=== PATIENT | female | born 1945 | race Caucasian/White ===

== ENCOUNTER 2020-03-22 16:54 | Emergency (ER) | payer MEDICARE, OTHER ==
[2020-03-22 17:02] VITALS: BP 137/74; PULSE 69; TEMP 97.4; BMI 22.4
[2020-03-22 19:04] LABS: BASO % 0.7 % (0-2.0); EOS % 1.1 % (0-4.5); HEMOGLOBIN 11.9 GM/dL (10.7-15.3); LYMPH % 14.1 % (8-40); MCH 31.9 pg (25.7-33.7); MCHC 33.9 g/dl (32.0-36.0); MEAN CELL VOLUME 93.9 fl (80-96); MEAN PLT VOLUME 8.6 fl (7.5-11.1); MONO % 6.6 % (3.8-10.2); NEUT % 77.5 % (42.8-82.8); PLATELET COUNT 214 K/MM3 (134-434); RBC 3.73 M/mm3 (3.60-5.2); RDW 12.9 % (11.6-15.6); WHITE BLOOD COUNT 7.7 K/mm3 (4.0-10.0)
[2020-03-22 19:05] LABS: URINE APPEARANCE CLEAR; URINE BILIRUBIN NEGATIVE (NEGATIVE); URINE COLOR YELLOW; URINE GLUCOSE (UA) NEGATIVE (NEGATIVE); URINE KETONE NEGATIVE (NEGATIVE); URINE LEUK ESTERASE NEGATIVE (NEGATIVE); URINE NITRITE NEGATIVE (NEGATIVE); URINE PROTEIN NEGATIVE (NEGATIVE); URINE UROBILINOGEN 0.2 mg/dL (0.2-1.0)
[2020-03-22 20:20] LABS: POTASSIUM 4.6 mmol/L (3.5-5.1)
[2020-03-22 20:24] LABS: ALBUMIN 3.5 g/dl (3.4-5.0); CALCIUM 9.7 mg/dL (8.5-10.1)
[2020-03-22 20:28] LABS: CREATININE 0.7 mg/dL (0.55-1.3)
[2020-03-22 20:29] LABS: BILIRUBIN,TOTAL 0.5 mg/dL (0.2-1); TOT PROT 6.8 g/dl (6.4-8.2)
[2020-03-22 20:43] LABS: BLOOD UREA NITROGEN 9.5 mg/dL (7-18)
== END 2020-03-22 23:14 | disposition home or self-care (01) ==
LOC: JER 16:54
DX: R33.9 Retention of urine, unspecified (principal)
CPT/HCPCS: 36415; 71045-TC-FY; 74177-TC; 80053; 81003; 85025; 87086; 99284-25; Q9967

== ENCOUNTER 2021-08-13 15:07 | Inpatient (IN) | payer MEDICARE, OTHER ==
[2021-08-13 15:36] VITALS: BMI 25.4
[2021-08-13] MEDS ORDERED: SODIUM CHLORIDE 0.9% 500 ML INFUS.BAG IV ONE (16:39)
[2021-08-13] MEDS ORDERED: ACETAMINOPHEN 1000 MG/100 ML BAG IVPB ONE (16:39)
[2021-08-13] MEDS ORDERED: FAMOTIDINE 20 MG/50 ML IVPB 20 MG/50 ML MG IVPB ONE ×2 (16:40→17:36)
[2021-08-13 17:30] LABS: BASO % 0.7 % (0-2.0); EOS % 0.6 % (0-4.5); HEMATOCRIT 34.7 % (32.4-45.2); HEMOGLOBIN 11.8 GM/dL (10.7-15.3); LYMPH % 15.5 % (8-40); MCH 31.1 pg (25.7-33.7); MCHC 34.1 g/dl (32.0-36.0); MEAN CELL VOLUME 91.3 fl (80-96); MEAN PLT VOLUME 7.7 fl (7.5-11.1); MONO % 5.9 % (3.8-10.2); NEUT % 77.3 % (42.8-82.8); PLATELET COUNT 247 10^3/uL (134-434); RDW 12.8 % (11.6-15.6); WHITE BLOOD COUNT 10.5 K/mm3 (4.0-10.0)
[2021-08-13] MEDS ORDERED: ACETAMINOPHEN INJECTION 100 ML IVPB ONE (17:36)
[2021-08-13 17:53] LABS: ALBUMIN 3.4 g/dl (3.4-5.0); BLOOD UREA NITROGEN 15.1 mg/dL (7-18); CALCIUM 9.2 mg/dL (8.5-10.1)
[2021-08-13 17:56] LABS: CREATININE 0.8 mg/dL (0.55-1.3)
[2021-08-13 17:58] LABS: INR 1.1 (0.83-1.09); PROTHROMBIN TIME (PATIENT) 12.7 SEC (9.7-13.0)
[2021-08-13 17:58] LABS: BILIRUBIN,TOTAL 0.3 mg/dL (0.2-1); TOT PROT 6.9 g/dl (6.4-8.2)
[2021-08-13 18:00] LABS: ACTIVATED PTT 22.5 SECONDS (25.2-36.5)
[2021-08-13 19:42] LABS: URINE APPEARANCE CLEAR; URINE BILIRUBIN NEGATIVE (NEGATIVE); URINE COLOR YELLOW; URINE GLUCOSE (UA) NEGATIVE (NEGATIVE); URINE KETONE NEGATIVE (NEGATIVE); URINE LEUK ESTERASE NEGATIVE (NEGATIVE); URINE NITRITE NEGATIVE (NEGATIVE); URINE PROTEIN NEGATIVE (NEGATIVE); URINE UROBILINOGEN 0.2 mg/dL (0.2-1.0)
[2021-08-13] MEDS ORDERED: ACETAMINOPHEN 325 MG TABLET (FP) PO PRN (22:19)
[2021-08-14 07:56] LABS: HEMATOCRIT 31.9 % (32.4-45.2); HEMOGLOBIN 11.1 GM/dL (10.7-15.3); MCH 31.4 pg (25.7-33.7); MCHC 34.7 g/dl (32.0-36.0); MEAN CELL VOLUME 90.7 fl (80-96); MEAN PLT VOLUME 7.5 fl (7.5-11.1); PLATELET COUNT 214 10^3/uL (134-434); RBC 3.52 M/mm3 (3.60-5.2); RDW 12.8 % (11.6-15.6); WHITE BLOOD COUNT 9.9 K/mm3 (4.0-10.0)
[2021-08-14 08:17] LABS: BLOOD UREA NITROGEN 11.2 mg/dL (7-18)
[2021-08-14 08:18] LABS: CALCIUM 8.6 mg/dL (8.5-10.1)
[2021-08-14 08:22] LABS: CREATININE 0.6 mg/dL (0.55-1.3); PHOSPHOROUS 3.4 mg/dL (2.5-4.9)
[2021-08-14] MEDS ORDERED: EZETIMIBE 10 MG TABLET (FP) PO SCH (10:00)
[2021-08-14] MEDS ORDERED: ASPIRIN 81 MG CHEWABLE TABLETS PO SCH (10:00)
[2021-08-14] MEDS ORDERED: SPIRONOLACTONE 25 MG TABLET PO SCH (10:00)
[2021-08-14] MEDS ORDERED: ENOXAPARIN NA (PORCINE) 40 MG/0.4 ML DISP.SYRIN SQ SCH (10:00)
[2021-08-14] MEDS ORDERED: SPIRONOLACTONE 25 MG TABLET ONE (10:07)
[2021-08-14] MEDS ORDERED: ASPIRIN 81 MG CHEWABLE TABLETS ONE (10:07)
[2021-08-14] MEDS ORDERED: ENOXAPARIN NA (PORCINE) 40 MG/0.4 ML DISP.SYRIN SQ ONE (10:08)
[2021-08-14] MEDS: SACUBITRIL/VALSARTAN 49 MG-51 MG TABLET PO SCH ×2 (10:24→22:21)
[2021-08-14] MEDS ORDERED: ACETAMINOPHEN 325 MG TABLET (FP) ONE (10:26)
[2021-08-14] MEDS ORDERED: ROSUVASTATIN CA 20 MG TABLET PO SCH (22:00)
[2021-08-15 07:52] LABS: BASO % 0.5 % (0-2.0); EOS % 1.6 % (0-4.5); HEMATOCRIT 31.5 % (32.4-45.2); HEMOGLOBIN 10.6 GM/dL (10.7-15.3); LYMPH % 22.3 % (8-40); MCHC 33.8 g/dl (32.0-36.0); MEAN CELL VOLUME 91.7 fl (80-96); MEAN PLT VOLUME 7.7 fl (7.5-11.1); MONO % 5.7 % (3.8-10.2); NEUT % 69.9 % (42.8-82.8); PLATELET COUNT 214 10^3/uL (134-434); RBC 3.43 M/mm3 (3.60-5.2); WHITE BLOOD COUNT 8.5 K/mm3 (4.0-10.0)
[2021-08-15 08:20] LABS: ALBUMIN 2.9 g/dl (3.4-5.0); CALCIUM 8.4 mg/dL (8.5-10.1)
[2021-08-15 08:21] LABS: BLOOD UREA NITROGEN 15.6 mg/dL (7-18); MAGNESIUM 2.2 mg/dL (1.8-2.4)
[2021-08-15 08:23] LABS: CREATININE 0.7 mg/dL (0.55-1.3)
[2021-08-15 08:24] LABS: BILIRUBIN,TOTAL 0.4 mg/dL (0.2-1)
[2021-08-15] MEDS ORDERED: ACETAMINOPHEN 325 MG TABLET (FP) PO PRN (09:42)
[2021-08-15] MEDS ORDERED: SENNOSIDES 8.6MG TABLET (FP) PO ONE (10:45)
[2021-08-15] MEDS: SACUBITRIL/VALSARTAN 49 MG-51 MG TABLET PO SCH ×2 (11:08→22:37)
[2021-08-15] MEDS: SPIRONOLACTONE 25 MG TABLET PO SCH (11:08)
[2021-08-15] MEDS: ASPIRIN 81 MG CHEWABLE TABLETS PO SCH (11:14)
[2021-08-15] MEDS: EZETIMIBE 10 MG TABLET (FP) PO SCH (11:15)
[2021-08-15] MEDS: ENOXAPARIN NA (PORCINE) 40 MG/0.4 ML DISP.SYRIN SQ SCH (11:15)
[2021-08-15] MEDS: POLYETHYLENE GLYCOL (HEALTHYLAX) 3350 17 GM PACKET PO SCH (11:15)
[2021-08-15] MEDS ORDERED: BISACODYL 5 MG TABLET.DR (FP) PO ONE (16:00)
[2021-08-15] MEDS ORDERED: PEG 3350/NA SULF BICARB CL/KCL 4000 ML SOLN.RECON PO ONE (17:00)
[2021-08-15] MEDS ORDERED: TRIMETHOBENZAMIDE HCL 200MG/2ML INJ IM ONE (17:52)
[2021-08-15] MEDS: ROSUVASTATIN CA 20 MG TABLET PO SCH (22:05)
[2021-08-16 08:07] LABS: CARCINOEMBRYONIC ANTIGEN 1.4 ng/mL (0.0-4.7)
[2021-08-16 08:17] LABS: BASO % 0.7 % (0-2.0); HEMATOCRIT 29.5 % (32.4-45.2); HEMOGLOBIN 10.1 GM/dL (10.7-15.3); LYMPH % 27.4 % (8-40); MCH 30.9 pg (25.7-33.7); MCHC 34.1 g/dl (32.0-36.0); MEAN CELL VOLUME 90.5 fl (80-96); MEAN PLT VOLUME 7.6 fl (7.5-11.1); MONO % 6.9 % (3.8-10.2); PLATELET COUNT 217 10^3/uL (134-434); RBC 3.26 M/mm3 (3.60-5.2); RDW 12.5 % (11.6-15.6); WHITE BLOOD COUNT 7.2 K/mm3 (4.0-10.0)
[2021-08-16 08:37] LABS: INR 1.15 (0.83-1.09); PROTHROMBIN TIME (PATIENT) 13.3 SEC (9.7-13.0)
[2021-08-16 08:43] LABS: CALCIUM 8.5 mg/dL (8.5-10.1)
[2021-08-16 08:43] LABS: CALCIUM 8.6 mg/dL (8.5-10.1)
[2021-08-16 08:44] LABS: BLOOD UREA NITROGEN 10.2 mg/dL (7-18)
[2021-08-16 08:44] LABS: ALBUMIN 2.8 g/dl (3.4-5.0); BLOOD UREA NITROGEN 9.6 mg/dL (7-18)
[2021-08-16 08:47] LABS: CREATININE 0.7 mg/dL (0.55-1.3)
[2021-08-16 08:48] LABS: CREATININE 0.7 mg/dL (0.55-1.3)
[2021-08-16 08:48] LABS: BILIRUBIN,TOTAL 0.5 mg/dL (0.2-1)
[2021-08-16] MEDS: EZETIMIBE 10 MG TABLET (FP) PO SCH (13:47)
[2021-08-16] MEDS: SPIRONOLACTONE 25 MG TABLET PO SCH (13:48)
[2021-08-16] MEDS: ASPIRIN 81 MG CHEWABLE TABLETS PO SCH (13:48)
[2021-08-16] MEDS: SACUBITRIL/VALSARTAN 49 MG-51 MG TABLET PO SCH ×2 (13:53→22:59)
[2021-08-16] MEDS: POLYETHYLENE GLYCOL (HEALTHYLAX) 3350 17 GM PACKET PO SCH (13:54)
[2021-08-16] MEDS: ROSUVASTATIN CA 20 MG TABLET PO SCH (22:59)
[2021-08-17 10:03] LABS: BASO % 1.1 % (0-2.0); EOS % 2.5 % (0-4.5); HEMATOCRIT 31.8 % (32.4-45.2); HEMOGLOBIN 10.9 GM/dL (10.7-15.3); LYMPH % 29.3 % (8-40); MCH 30.9 pg (25.7-33.7); MCHC 34.2 g/dl (32.0-36.0); MEAN CELL VOLUME 90.3 fl (80-96); MEAN PLT VOLUME 7.6 fl (7.5-11.1); MONO % 6.4 % (3.8-10.2); NEUT % 60.7 % (42.8-82.8); PLATELET COUNT 233 10^3/uL (134-434); RBC 3.52 M/mm3 (3.60-5.2); RDW 12.8 % (11.6-15.6); WHITE BLOOD COUNT 6.3 K/mm3 (4.0-10.0)
[2021-08-17] MEDS: SPIRONOLACTONE 25 MG TABLET PO SCH (11:03)
[2021-08-17] MEDS: EZETIMIBE 10 MG TABLET (FP) PO SCH (11:03)
[2021-08-17] MEDS: ASPIRIN 81 MG CHEWABLE TABLETS PO SCH (11:03)
[2021-08-17] MEDS: SACUBITRIL/VALSARTAN 49 MG-51 MG TABLET PO SCH ×2 (11:04→21:17)
[2021-08-17] MEDS: POLYETHYLENE GLYCOL (HEALTHYLAX) 3350 17 GM PACKET PO SCH (11:04)
[2021-08-17] MEDS: ENOXAPARIN NA (PORCINE) 40 MG/0.4 ML DISP.SYRIN SQ SCH (11:04)
[2021-08-17 11:24] LABS: CALCIUM 9.2 mg/dL (8.5-10.1)
[2021-08-17 11:25] LABS: BLOOD UREA NITROGEN 5.8 mg/dL (7-18)
[2021-08-17 11:28] LABS: CREATININE 0.8 mg/dL (0.55-1.3)
[2021-08-17 11:30] LABS: BILIRUBIN,TOTAL 0.2 mg/dL (0.2-1); TOT PROT 6.2 g/dl (6.4-8.2)
[2021-08-17] MEDS ORDERED: cefTRIAXone SODIUM 1 GM VIAL ONE (19:08)
[2021-08-17] MEDS ORDERED: DEXTROSE 5%-WATER - 50 ML IVPB ONE (19:08)
[2021-08-17] MEDS: CEFTRIAXONE 1 GM in DEXTROSE 5%-WATER - 50 ML IVPB SCH (19:20)
[2021-08-17] MEDS: ROSUVASTATIN CA 20 MG TABLET PO SCH (21:17)
[2021-08-18] MEDS ORDERED: cefTRIAXone SODIUM 1 GM VIAL ONE (09:10)
[2021-08-18] MEDS ORDERED: DEXTROSE 5%-WATER - 50 ML IVPB ONE (09:11)
[2021-08-18] MEDS: ENOXAPARIN NA (PORCINE) 40 MG/0.4 ML DISP.SYRIN SQ SCH (09:19)
[2021-08-18] MEDS: CEFTRIAXONE 1 GM in DEXTROSE 5%-WATER - 50 ML IVPB SCH (09:20)
[2021-08-18] MEDS: ASPIRIN 81 MG CHEWABLE TABLETS PO SCH (09:20)
[2021-08-18] MEDS: EZETIMIBE 10 MG TABLET (FP) PO SCH (09:20)
[2021-08-18] MEDS: POLYETHYLENE GLYCOL (HEALTHYLAX) 3350 17 GM PACKET PO SCH (09:21)
[2021-08-18] MEDS: SPIRONOLACTONE 25 MG TABLET PO SCH (11:27)
[2021-08-18] MEDS: SACUBITRIL/VALSARTAN 49 MG-51 MG TABLET PO SCH ×2 (11:27→21:57)
[2021-08-18 13:20] LABS: BASO % 1.1 % (0-2.0); EOS % 2.5 % (0-4.5); HEMATOCRIT 30.6 % (32.4-45.2); HEMOGLOBIN 10.5 GM/dL (10.7-15.3); LYMPH % 35.5 % (8-40); MCH 31.2 pg (25.7-33.7); MCHC 34.4 g/dl (32.0-36.0); MEAN CELL VOLUME 90.8 fl (80-96); MEAN PLT VOLUME 8.2 fl (7.5-11.1); MONO % 7.4 % (3.8-10.2); NEUT % 53.5 % (42.8-82.8); PLATELET COUNT 239 10^3/uL (134-434); RBC 3.37 M/mm3 (3.60-5.2); RDW 12.7 % (11.6-15.6); WHITE BLOOD COUNT 4.9 K/mm3 (4.0-10.0)
[2021-08-18] MEDS: ROSUVASTATIN CA 20 MG TABLET PO SCH (21:57)
[2021-08-19] MEDS ORDERED: PANTOPRAZOLE 20 MG TABLET PO SCH (10:00)
[2021-08-19] MEDS ORDERED: DEXTROSE 5%-WATER - 50 ML IVPB ONE (10:25)
[2021-08-19] MEDS ORDERED: cefTRIAXone SODIUM 1 GM VIAL ONE (10:25)
[2021-08-19] MEDS: EZETIMIBE 10 MG TABLET (FP) PO SCH (10:28)
[2021-08-19] MEDS: SPIRONOLACTONE 25 MG TABLET PO SCH (10:28)
[2021-08-19] MEDS: ASPIRIN 81 MG CHEWABLE TABLETS PO SCH (10:29)
[2021-08-19] MEDS: SACUBITRIL/VALSARTAN 49 MG-51 MG TABLET PO SCH (10:29)
[2021-08-19] MEDS: CEFTRIAXONE 1 GM in DEXTROSE 5%-WATER - 50 ML IVPB SCH (10:30)
[2021-08-19] MEDS: ENOXAPARIN NA (PORCINE) 40 MG/0.4 ML DISP.SYRIN SQ SCH (10:31)
[2021-08-19] MEDS: POLYETHYLENE GLYCOL (HEALTHYLAX) 3350 17 GM PACKET PO SCH (10:32)
[2021-08-19 16:29] VITALS: BP 87/55; PULSE 67; TEMP 98.7
== END 2021-08-19 17:24 | disposition home or self-care (01) | DRG 394 ==
LOC: JER 15:07 → JERBED 21:46 → J8W 08-15 09:26 → OBSVTOIN 08-15 13:19 → J8W 08-15 13:53
PROVIDERS: ADMIT Internal Medicine; ATTEND Internal Medicine
PROC: 0DBP8ZX Excision of Rectum, Via Natural or Artificial Opening Endoscopic, Diagnostic (ICD-10-PCS; 2021-08-16)
PROC: 0DBE8ZX Excision of Large Intestine, Via Natural or Artificial Opening Endoscopic, Diagnostic (ICD-10-PCS; principal; 2021-08-16 11:30)
DX: K55.9 Vascular disorder of intestine, unspecified (principal); I50.22 Chronic systolic (congestive) heart failure; I24.8 Other forms of acute ischemic heart disease; I11.0 Hypertensive heart disease with heart failure; I25.5 Ischemic cardiomyopathy; I25.10 Atherosclerotic heart disease of native coronary artery without angina pectoris; E78.00 Pure hypercholesterolemia, unspecified; E78.5 Hyperlipidemia, unspecified; K21.9 Gastro-esophageal reflux disease without esophagitis; G89.29 Other chronic pain; D72.829 Elevated white blood cell count, unspecified; K62.1 Rectal polyp; K64.8 Other hemorrhoids; Z98.61 Coronary angioplasty status; K57.90 Diverticulosis of intestine, part unspecified, without perforation or abscess without bleeding
CPT/HCPCS: 36415; 71045-TC-FY; 71260-TC; 74176-TC; 74177-TC; 80048; 80053; 80061; 81003; 82272; 82378; 83605; 83690; 83735; 83993; 84100; 84443; 84484; 85025; 85027; 85610; 85730; 86140; 86301; 86304; 86850; 86900; 86901; 87045; 87046; 87086; 87177; 87205; 87209; 87324; 87449; 88305-TC; 93005; 93010; 97116-GP; 97161-GP; 99285-25; C9803-CS; G0378; Q9967; U0003; U0005

== ENCOUNTER 2021-09-20 04:42 | Day surgery (SDC) | payer MEDICARE, OTHER ==
[2021-09-19 14:21] VITALS: BMI 20.9
[2021-09-20 11:09] VITALS: TEMP 97.1
[2021-09-20 12:00] VITALS: BP 112/70; PULSE 79
[2021-09-20 13:01] LABS: CREATININE 0.7 mg/dL (0.55-1.3)
== END 2021-09-20 12:42 | disposition home or self-care (01) ==
LOC: JASU-ENDO 04:42
PROVIDERS: ATTEND Internal Medicine Gastroenterology
PROC: 0DBL8ZX Excision of Transverse Colon, Via Natural or Artificial Opening Endoscopic, Diagnostic (ICD-10-PCS; 2021-09-20)
PROC: 0DBP8ZX Excision of Rectum, Via Natural or Artificial Opening Endoscopic, Diagnostic (ICD-10-PCS; 2021-09-20)
PROC: 0DBH8ZX Excision of Cecum, Via Natural or Artificial Opening Endoscopic, Diagnostic (ICD-10-PCS; 2021-09-20)
PROC: 0DBK8ZX Excision of Ascending Colon, Via Natural or Artificial Opening Endoscopic, Diagnostic (ICD-10-PCS; principal; 2021-09-20 11:15)
DX: K57.30 Diverticulosis of large intestine without perforation or abscess without bleeding (principal); K52.89 Other specified noninfective gastroenteritis and colitis; K62.1 Rectal polyp; K64.8 Other hemorrhoids; D12.2 Benign neoplasm of ascending colon; D12.0 Benign neoplasm of cecum; D12.3 Benign neoplasm of transverse colon; K63.89 Other specified diseases of intestine
CPT/HCPCS: 36415; 80048; 88305-TC

== ENCOUNTER 2022-10-25 15:54 | Emergency (ER) | payer MEDICARE, OTHER ==
[2022-10-25 16:14] VITALS: RESP 18; BMI 21.2
[2022-10-25] MEDS ORDERED: SODIUM CHLORIDE 0.9% 500 ML INFUS.BAG IV ONE ×2 (17:16→19:50)
[2022-10-25 18:37] LABS: HEMOGLOBIN 10.3 GM/dL (10.7-15.3); MCH 31.7 pg (25.7-33.7); MEAN PLT VOLUME 7.6 fl (7.5-11.1)
[2022-10-25 18:41] LABS: BASO % 0.2 % (0-2.0); EOS % 1.4 % (0-4.5); HEMATOCRIT 29.8 % (32.4-45.2); LYMPH % 37.4 % (8-40); MCHC 34.4 g/dl (32.0-36.0); MEAN CELL VOLUME 92.3 fl (80-96); MONO % 10.8 % (3.8-10.2); NEUT % 50.2 % (42.8-82.8); PLATELET COUNT 222 10^3/uL (134-434); RBC 3.23 M/mm3 (3.60-5.2); WHITE BLOOD COUNT 4.8 K/mm3 (4.0-10.0)
[2022-10-25] MEDS ORDERED: MAG HYDROX/AL HYDROX/SIMETH -MYLANTA- ORAL SUSPENSION PO ONE (18:45)
[2022-10-25] MEDS ORDERED: FAMOTIDINE 20 MG/50 ML IVPB 20 MG/50 ML MG IVPB ONE ×2 (18:45→19:09)
[2022-10-25 18:48] LABS: INR 1.06 (0.83-1.09); PROTHROMBIN TIME (PATIENT) 12.3 SEC (9.7-13.0)
[2022-10-25 18:50] LABS: ACTIVATED PTT 26.2 SECONDS (25.2-36.5)
[2022-10-25 19:00] LABS: POTASSIUM 4.2 mmol/L (3.5-5.1)
[2022-10-25 19:01] LABS: CALCIUM 8.8 mg/dL (8.5-10.1)
[2022-10-25 19:02] LABS: BLOOD UREA NITROGEN 16.5 mg/dL (7-18)
[2022-10-25 19:05] LABS: CREATININE 0.9 mg/dL (0.55-1.3)
[2022-10-25 19:06] VITALS: PULSE 71; TEMP 97.7
[2022-10-25 19:06] LABS: TOT PROT 6.2 g/dl (6.4-8.2)
[2022-10-25 19:07] LABS: BILIRUBIN,TOTAL 0.2 mg/dL (0.2-1)
[2022-10-25] MEDS ORDERED: MAG HYDROX/AL HYDROX/SIMETH 30 ML UNIT-DOSE CUP ONE (19:09)
[2022-10-25] MEDS ORDERED: FAMOTIDINE 10 MG/ML VIAL IVPB ONE (19:53)
[2022-10-25 23:08] VITALS: BP 115/65
== END 2022-10-26 03:10 | disposition home or self-care (01) ==
LOC: JER 15:54
PROC: 3E033GC Introduction of Other Therapeutic Substance into Peripheral Vein, Percutaneous Approach (ICD-10-PCS; principal; 2022-10-25)
DX: R11.10 Vomiting, unspecified (principal); R10.13 Epigastric pain; R19.7 Diarrhea, unspecified; R10.11 Right upper quadrant pain
CPT/HCPCS: 36415; 74177-TC; 80053; 83605; 83690; 84484; 85025; 85610; 85730; 86850; 86900; 86901; 93005; 93010; 99285-25; Q9967